=== PATIENT | male | born 1980 | race Caucasian/White ===

== ENCOUNTER 2016-08-28 14:35 | Emergency (ER) | payer OTHER ==
[~2016-08-28] VITALS: Wt 70.0 kg
[2016-08-28] MEDS ORDERED: LORAZEPAM 2 MG INJ ONE (14:46)
[2016-08-28] MEDS ORDERED: SOD CHLORIDE 0.9% 1,000 ML IV STA (14:49)
[2016-08-28] MEDS ORDERED: LORAZEPAM 2 MG INJ IV ONE ×3 (15:00→21:00)
[2016-08-28] MEDS: KETAMINE 500 MG INJ IV ONE ×2 (15:00→16:28)
[2016-08-28 15:05] LABS: ADD SCAN DIFF NO
[2016-08-28 15:09] LABS: BASOPHIL # 0.1 10^3/ul (0.0-0.1); BASOPHILS % 0.8 % (0.0-2.0); EOSINOPHILS # 0.3 10^3/ul (0.0-0.5); EOSINOPHILS % 2.5 % (0.0-7.0); HEMATOCRIT 46.7 % (42.0-52.0); LYMPHOCYTES % 25.6 % (15.0-51.0); MEAN CORPUSCULAR HEMOGLOBIN 32.4 pg (29.0-33.0); MEAN CORPUSCULAR HGB CONC 34.3 g/dl (32.0-37.0); MEAN CORPUSCULAR VOLUME 94.5 fl (82.0-101.0); MEAN PLATELET VOLUME 9.6 fl (7.4-10.4); MONOCYTE # 0.5 10^3/ul (0.3-0.9); NEUTROPHIL # 7.9 10^3/ul (1.6-7.5); NEUTROPHILS % 66.7 % (39.0-77.0); PLATELET COUNT 321 10^3/UL (140-415); RED BLOOD COUNT 4.94 10^6/ul (4.70-6.10); RED CELL DISTRIBUTION WIDTH 13.3 % (11.5-14.5); WHITE BLOOD COUNT 11.8 10^3/ul (4.8-10.8)
[2016-08-28 15:10] LABS: ADD UMIC NO; URINE BILIRUBIN (Dip) NEGATIVE (NEGATIVE); URINE BLOOD (Dip) NEGATIVE (NEGATIVE); URINE COLOR LT. YELLOW (YELLOW); URINE GLUCOSE (Dip) NEGATIVE (NEGATIVE); URINE KETONES (Dip) NEGATIVE (NEGATIVE); URINE LEUKOCYTE ESTERASE (Dip) NEGATIVE (NEGATIVE); URINE NITRITE (Dip) NEGATIVE (NEGATIVE); URINE TOTAL PROTEIN (Dip) NEGATIVE (NEGATIVE); URINE UROBILINOGEN (Dip) 0.2 E.U./dL (0.1-1.0)
[2016-08-28 15:35] LABS: ALBUMIN 5.1 g/dl (3.3-4.9); CHLORIDE 107 mmol/L (97-110)
[2016-08-28 15:36] LABS: POTASSIUM 3.8 mmol/L (3.5-5.1); SODIUM 149 mmol/L (135-144)
[2016-08-28 15:38] LABS: ALANINE AMINOTRANSFERASE 32 IU/L (13-69); ALKALINE PHOSPHATASE 70 IU/L (42-121); ASPARTATE AMINO TRANSFERASE 25 IU/L (15-46); BLOOD UREA NITROGEN 12 mg/dl (7-20); CARBON DIOXIDE 21 mmol/L (21-31); CREATININE 0.87 mg/dl (0.61-1.24); GLUCOSE 98 mg/dl (70-220); TOTAL PROTEIN 8.6 g/dl (6.1-8.1)
[2016-08-28 15:39] LABS: CALCIUM 8.9 mg/dl (8.4-10.2)
[2016-08-28 15:42] LABS: BARBITURATES NEGATIVE (NEGATIVE); BENZODIAZEPINES NEGATIVE (NEGATIVE); CANNABINOIDS POSITIVE (NEGATIVE); COCAINE NEGATIVE (NEGATIVE); OPIATES NEGATIVE (NEGATIVE)
[2016-08-28 15:43] LABS: ACETAMINOPHEN < 10.0 ug/ml (10.0-30.0); SALICYLATE < 1.0 mg/dl (5.0-30.0)
[2016-08-28 15:44] LABS: ALBUMIN/GLOBULIN RATIO 1.45; ANION GAP 25 (8-16)
--- NOTE | 2016-08-28 15:50 | ERD ---
ER Documentation Chief Complaint Date/Time DATE: 08/28/16 TIME: 15:49 Chief Complaint ALOC PER [facility]. LAST USED METH WEEK AGO. PT COMBATIVE AND ORIENTED NOW HPI 35-year-old man brought in by girlfriend for agitation and combative behavior. She states he gets like this every time he drinks or uses drugs. Patient does have a history of methamphetamine abuse and has used it recently. He denies suicidal homicidal ideation, no vomiting or diarrhea, HPI was limited as patient was agitated and combative and a danger to himself and others around him. ROS All systems reviewed and are negative except as per history of present illness. PMhx/Soc Alcohol abuse and drug abuse Medical and Surgical Hx: Unable to obtain Hx Alcohol Use: Yes Hx Substance Use: Yes Hx Tobacco Use: Yes Smoking Status: Current every day smoker FmHx Family History: No diabetes Physical Exam Vitals Vital Signs Date Time Temp Pulse Resp B/P Pulse Ox O2 Delivery O2 Flow Rate FiO2 08/28/16 15:18 99 20 109/76 100 Room Air 08/28/16 15:07 98.8 105 21 145/88 98 Physical Exam GENERAL: Well-developed, well-nourished, agitated, combative, afebrile HEENT: Moist mucous membranes, pink conjunctiva, no cervical spine tenderness or step-off deformities, no goiter, no jaundice or icterus, extraocular movements intact without pain. No submandibular induration, and no pharyngeal erythema NEURO: Alert and oriented 3, cranial nerves II through XII intact bilaterally, pupils equal round reactive to light, no focal deficits or facial asymmetry, sensation intact distally Strength 5/5 in upper and lower extremities bilaterally CARDIAC: Tachycardic and regular, no murmurs rubs or gallops LUNGS: Clear bilaterally no wheezing crackles or stridor ABDOMEN: Soft nontender, no guarding, no rigidity, no rebound, no psoas sign no obturator sign. Normoactive bowel sounds SKIN: Warm and dry to touch, no abrasions, contusions, or hematomas, no lacerations, no ecchymosis, no target lesions, and without ulcers EXTREMITIES: No clubbing cyanosis or edema, calves are bilaterally symmetrical, no Homans sign, no popliteal cord sign. Distal pulses equal and bilateral PSYCH: Agitated, combative Result Diagram: 08/28/16 1455 08/28/16 1455 Results 24 hrs Laboratory Tests Test 08/28/16 14:50 08/28/16 14:55 Urine Color LT. YELLOW Urine Clarity CLEAR Urine pH 5.0 Urine Specific [place] <=1.005 Urine Ketones NEGATIVE Urine Nitrite NEGATIVE Urine Bilirubin NEGATIVE Urine Urobilinogen 0.2 E.U./dL Urine Leukocyte Esterase NEGATIVE Urine Hemoglobin NEGATIVE Urine Glucose NEGATIVE% Urine Total Protein NEGATIVE Urine Opiates Screen NEGATIVE Urine Barbiturates NEGATIVE Urine Amphetamines Screen NEGATIVE Urine Benzodiazepines Screen NEGATIVE Urine Cocaine Screen NEGATIVE Urine Cannabinoids POSITIVE White Blood Count 11.810^3/ul Red Blood Count 4.9410^6/ul Hemoglobin 16.0g/dl Hematocrit 46.7% Mean Corpuscular Volume 94.5fl Mean Corpuscular Hemoglobin 32.4pg Mean Corpuscular Hemoglobin Concent 34.3g/dl Red Cell Distribution Width 13.3% Platelet Count 97493^3/UL Mean Platelet Volume 9.6fl Neutrophils % 66.7% Lymphocytes % 25.6% Monocytes % 4.0% Eosinophils % 2.5% Basophils % 0.8% Nucleated Red Blood Cells % 0.0/100WBC Neutrophils # 7.910^3/ul Lymphocytes # 3.010^3/ul Monocytes # 0.510^3/ul Eosinophils # 0.310^3/ul Basophils # 0.110^3/ul Nucleated Red Blood Cells # 0.010^3/ul Sodium Level 149mmol/L Potassium Level 3.8mmol/L Chloride Level 107mmol/L Carbon Dioxide Level 21mmol/L Anion Gap 25 Blood Urea Nitrogen 12mg/dl Creatinine 0.87mg/dl Glucose Level 98mg/dl Calcium Level 8.9mg/dl Total Bilirubin 0.0mg/dl Direct Bilirubin 0.00mg/dl Indirect Bilirubin 0.0mg/dl Aspartate Amino Transf (AST/SGOT) 25IU/L Alanine Aminotransferase (ALT/SGPT) 32IU/L Alkaline Phosphatase 70IU/L Total Protein 8.6g/dl Albumin 5.1g/dl Globulin 3.50g/dl Albumin/Globulin Ratio 1.45 Salicylates Level < 1.0mg/dl Acetaminophen Level < 10.0ug/ml Ethyl Alcohol Level 212.0mg/dl Current Medications Medications (Trade) Dose Ordered Sig/Arleen Route PRN Reason Start Time Stop Time Status Last Admin Dose Admin Lorazepam 2 mg 2 mg ONCE ONCE IV 08/28/16 15:00 08/28/16 15:01 DC 08/28/16 14:50 Sodium Chloride (NS) 1,000 ml @ 2,000 mls/hr Q30M STAT IV 08/28/16 14:49 08/28/16 15:18 DC 08/28/16 15:24 Ketamine HCl (Ketalar) 50 mg ONCE ONCE IV 08/28/16 15:00 08/28/16 15:01 DC 08/28/16 16:28 Lorazepam (Ativan) 2 mg STK-MED ONCE .ROUTE 08/28/16 14:46 08/28/16 14:53 DC Ondansetron HCl (Zofran Inj) 4 mg ONCE STAT IV 08/28/16 16:02 08/28/16 16:03 DC 08/28/16 16:11 Procedures/MDM Patient had to be placed in 4. upper and lower extremity restraints for agitation and combative behavior, he was a threat to himself and others because of acute drug and alcohol intoxication. He was afebrile. An IV line was established and was given 2 L normal saline intravenously, lorazepam 2 mg IV, and Zofran 4 mg IV for nausea. For continued agitation I administered ketamine 50 mg IV with excellent effect. EKG performed, read by me revealed a sinus tachycardia at 113 bpm, normal axis, narrow QRS complex, no concerning ST elevations or depressions noted. CBC and electrolytes were unremarkable, liver function tests were normal. Urine drug screen positive for cannabinoids, alcohol level elevated at 212, aspirin Tylenol levels were negative. Patient's mental status has improved he is more comfortable at this time although he is at risk for eloping from the emergency department and after being sedated with Ativan and ketamine. I recommend strongly against releasing the restraints to early. Observation Note: Time: 5 hours Family Hx: No Hypertension Evaluation: Multiple exams showed improving symptoms and no evidence of decompensated cardiopulmonary status, decreasing mental status, or acute neurologic findings. Patient's behavioral symptoms have stabilized while in the department. Patient is medically cleared and appropriate for outpatient medical and psychiatric evaluation and workup. Differential diagnoses considered, included but not limited to acute coronary syndrome, pulmonary embolism, aortic dissection, abdominal aortic aneurysm, sepsis, stroke, meningitis, encephalitis, pneumonia, appendicitis, cholecystitis , bowel obstruction, pyelonephritis, nephrolithiasis, cystitis, as well as metabolic, hematologic, and electrolyte abnormalities. As well as abscess, cellulitis, fractures, and dislocations. Patient feels much better at this time, and vital signs are normal, symptoms have improved. I did give strict instructions to return to the ED if symptoms continue or worsen, patient will otherwise follow-up with primary care physician. Patient understood instructions and agreed to plan. Disclaimer: Inadvertent spelling or grammatical errors are likely due to EHR/ dictation software use and do not reflect on the overall quality of patient care. Departure Diagnosis: Primary Impression: Acute encephalopathy Additional Impressions: Drug abuse Alcohol intoxication delirium Dehydration Condition: Good OMAR ELMORE MD August 28, 2016 15:50
[2016-08-28] MEDS ORDERED: ONDANSETRON 4 MG INJ IV STA (16:02)
[2016-08-28] MEDS ORDERED: SOD CHLORIDE 0.9% 1,000 ML IV ONE (19:00)
[2016-08-28] MEDS ORDERED: METOCLOPRAMIDE 10 MG INJ IV ONE (19:00)
[2016-08-28] MEDS ORDERED: ALPR0.5T PO (23:16)
[2016-08-29] MEDS ORDERED: LORAZEPAM 2 MG INJ IV ONE (01:00)
[2016-08-29] MEDS ORDERED: METOCLOPRAMIDE 10 MG INJ IV ONE (01:00)
[2016-08-29] MEDS ORDERED: SOD CHLORIDE 0.9% 1,000 ML IV ONE (01:00)
--- NOTE | 2016-08-29 01:48 | RADRPT ---
PROCEDURE: CT abdomen and pelvis without intravenous contrast. CLINICAL INDICATION: Pain. TECHNIQUE: CT of the abdomen/pelvis was performed utilizing axial images with reconstructions in s agittal and coronal planes. The administered radiation dose is CTDI 4.4 mGy, DLP 273 mGy-cm. COMPARISON: No pertinent prior examinations were submitted for comparison. FINDINGS: Visualized Chest: The visualized lung bases are clear. Abdomen: The spleen, pancreas, gallbladder,and adrenal glands are unremarkable. The liver is diffusely dec reased in attenuation, compatible with hepatic steatosis. The kidneys are without hydronephrosis. No definite urinary calculi are seen. There is no evidence of bowel obstruction. The appendix is normal. No intra-abdominal free air is seen. There is no evidence of intra-abdominal adenopathy or free fluid. Pelvis: There is no evidence of pelvic adenopathy or free fluid. The prostate and bladder are unremarkable. Osseous structures: Unremarkable. IMPRESSION: No acute findings. Hepatic steatosis. RPTAT: HIKT .Jerson Way MD, MD Date Time Electronically viewed and signed by .Jerson Way MD, on 08/29/2016 01:47 .T/
--- NOTE | 2016-08-29 02:04 | EN ---
Date/Time of Note Date/Time of Note DATE: 08/29/16 TIME: 01:59 ER Progress Note I was asked by the patient's nurse Nasima to evaluate the patient due to now nausea, vomiting, abdominal pain. He was seen and discharged by Dr. Cox. He stated that he has been vomiting because he has been drinking for the last week. Abdominal exam with diffuse abdominal discomfort, no rigidity, rebound, CVA tenderness Abdominopelvic CT was negative for any acute abnormality He was treated with Ativan 2 mg IV, 1 L normal saline for dehydration, Reglan 10 mg IV for nausea and vomiting with good response. On multiple reevaluation, he felt well, repeat abdominal exam was unremarkable The differential diagnoses considered include but are not limited to cholelithiasis, cholecystitis, cystitis, pancreatitis, hepatitis, gastritis, peptic ulcer disease, gastric ulcer, appendicitis, diverticulitis, cholangitis, choledocholithiasis, partial small bowel obstruction. He was advised to follow-up with his doctor in about 1-2 days, sooner if needed and return if any concern. He will be able to discharge as written by YULI Antonio MD August 29, 2016 02:04
[2016-08-29 03:25] VITALS: BP 122/68; PULSE 98; RESP 16; TEMP 100.2
== END 2016-08-29 03:41 | disposition home or self-care (01) ==
LOC: E/R 14:35
DX: G93.40 Encephalopathy, unspecified (principal); E86.0 Dehydration; F10.121 Alcohol abuse with intoxication delirium; F17.210 Nicotine dependence, cigarettes, uncomplicated; F15.10 Other stimulant abuse, uncomplicated; R40.2142 Coma scale, eyes open, spontaneous, at arrival to emergency department; R40.2352 Coma scale, best motor response, localizes pain, at arrival to emergency department; R40.2222 Coma scale, best verbal response, incomprehensible words, at arrival to emergency department
CPT/HCPCS: 36415; 74176; 80053; 80306; 80307; 81003; 85025; 93005; 96374; 96375; 96376; J2060; J2405; J2765; J7030; Z7502; Z7610